=== PATIENT | female | born 1965 | race Caucasian/White ===

== ENCOUNTER 2021-04-08 09:07 | Emergency (ER) | payer OTHER, SELFPAY ==
--- NOTE | ~2021-04-08 | US_ITS ---
EXAMINATION: US VENOUS ULTRASOUND WITH DOPPLER LOWER EXTREMITY, RIGHT CLINICAL INFORMATION: Pain right calf. Assess for occult DVT. COMPARISON: None TECHNIQUE: Ultrasound of the deep veins is performed from the hip to the calf with compression sonography and color and pulse Doppler assessment. Spectral analysis with color-flow imaging is performed. FINDINGS: There is normal venous compression and respiratory variation and augmented flow. The visualized common femoral vein, superficial femoral vein, profunda femoral vein, popliteal vein, and the trifurcation region shows no evidence of deep venous thrombosis. No popliteal fossa cyst. US/US venous duplex LE RT IMPRESSION: No DVT demonstrated in the right lower extremity.
[2021-04-08 09:27] VITALS: BP 144/89; PULSE 60; RESP 18; TEMP 36.1; O2SAT 98; BMI 28.7
--- NOTE | 2021-04-08 09:49 | ED.LOWEXIN ---
HPI - Extremity Injury (Lower) General Chief Complaint: Extremity Injury, Lower Stated Complaint: R CALF PAIN Time Seen by Provider: 04/08/21 09:28 Source: patient Mode of arrival: ambulatory Limitations: no limitations History of Present Illness HPI Narrative: 55 y/o female presents to the ER with a painful bump to the lower part of her right leg. It is bruised, slightly swollen and tender but she cannot recall an injury to the area. She has applied heat, ISADORA wrap and taken aspirin. The area has gotten smaller but it still painful so she came to the ER for further evaluation. She denies history of DVT or PE in herself or family. MD complaint: leg injury Onset (ago): day(s) (2) Place: home Severity: mild Severity scale (1-10): 4 Relieving factors: NSAID and rest Exacerbating factors: weight bearing and palpation Associated symptoms: swelling and able to partially bear weight Other symptoms: none Treatments prior to arrival: heart therapy and bandage Related Data Allergies Allergy/AdvReac Type Severity Reaction Status Date / Time lidocaine Allergy Vomiting Verified 04/08/21 09:32 mepivacaine [From Carbocaine] Allergy Difficulty Verified 04/08/21 09:32 Breathing Penicillins Allergy Rash Verified 04/08/21 09:32 Review of Systems Review of Systems: Constitutional: No Fever, No Chills Cardiovascular: No Chest Pain, No SOB, No Edema Gastrointestinal: No Nausea, No Vomiting Musculoskeletal: No joint pain, + Myalgias Skin: No Skin Lesions, No rash Neuro: No Weakness, No Numbness Heme/Lymph: + Bruising, No Lymphadenopathy PMFSH Past Medical History Medical History (Updated 04/08/21 @ 11:34 by TREE Álvarez) High blood pressure High cholesterol Social History Social History Advance Directives: Yes Advance Directives Information Provided: Yes Advance Directives on File: No Patient : No Physical Exam Vital Signs: Vital Signs: Last Vital Signs Temp 97.0 F 04/08/21 09:27 Pulse 60 04/08/21 09:27 Resp 18 04/08/21 09:27 BP 144/89 H 04/08/21 09:27 Pulse Ox 98 04/08/21 09:27 Body Mass Index 28.7 Appearance: Alert. Oriented X3. No acute distress. HEENT: normal inspection CVS: Normal heart rate and rhythm. Pulses normal. Respiratory: No respiratory distress. CTAB Skin: Skin warm and dry. Normal skin color. Normal skin turgor. No rashes. Extremities: right medial lower leg with a small area of ecchymosis and tenderness, 2cm area of slight firmness with superficial vein visible. no calf tenderness. 2+ pedal pulses, NV intact. Neuro: Oriented X 3. No motor deficit. No sensory deficit. Course Course Course Narrative: 55 y/o female presenting with nontraumatic right lower leg pain and slight swelling and bruising. Most consistent with small hematoma or superficial thrombophlebitis but will get LE doppler to r/o DVT. Reevaluation(s) Reevaluation #1: LE doppler negative. Likely superficial thrombophlebitis vs small hematoma. Will treat with compression and warm compresses and have her follow up wt PCP. Stable for d/c home. Discharge Plan Discharge Clinical Impression: Superficial thrombophlebitis Qualifiers: Superficial thrombophlebitis-Involved body area: lower extremity Laterality: right Qualified Code(s): I80.01 - Phlebitis and thrombophlebitis of superficial vessels of right lower extremity Patient Disposition: Home, Self-Care Instructions: Superficial Thrombophlebitis (ED) Additional Instructions: Use warm compresses to the area several times per day Keep elevated when possible Use compression with ISADORA wrap as needed Take Motrin and/or Tylenol as needed for pain Follow up with your doctor
== END 2021-04-08 11:39 | disposition home or self-care (01) ==
PROVIDERS: Emergency Provider Emergency Medicine; PCP Family Medicine
DX: I80.01 Phlebitis and thrombophlebitis of superficial vessels of right lower extremity (principal); M79.661 Pain in right lower leg; I10 Essential (primary) hypertension; E78.5 Hyperlipidemia, unspecified
CPT/HCPCS: 93971; 99283; 99284

== ENCOUNTER 2022-02-01 01:04 | Emergency (ER) | payer OTHER, SELFPAY ==
--- NOTE | ~2022-02-01 | XR_ITS ---
EXAMINATION: XR SOFT TISSUE NECK CLINICAL INDICATION: Question of long pit in throat COMPARISON: None TECHNIQUE: 2 views of the soft tissue neck were obtained. FINDINGS: Soft tissue films of the neck demonstrate a normal larynx, pharynx and upper trachea. Normal appearance of the epiglottis. No soft tissue swelling or opaque foreign body is demonstrated. The lung apices are clear. XR/XR soft tissue neck IMPRESSION: No radiopaque foreign body identified.
[2022-02-01 01:10] VITALS: BP 166/89; PULSE 72; RESP 16; TEMP 36.7; O2SAT 98; BMI 28.2
--- NOTE | 2022-02-01 02:24 | PC.NURSE ---
pt is able to speak, swallow water and no resp distress noted. pt is visable to rn while waiting for a room.
--- NOTE | 2022-02-01 03:08 | ED_ITS ---
HPI - General Adult General Chief complaint: General Medical Stated complaint: ?Sanders seed in throat Time Seen by Provider: 02/01/22 02:59 Source: patient Limitations: no limitations History of Present Illness HPI narrative: this is a 56-year-old female with a history of getting things caught in her throat in the past such as pistachios, patient bones, who is swallowed a sanders pit this evening and felt like he got stuck in her throat. The patient tried drinking plenty of water. She has also vomited a few times and is not sure if the trait is still there. She still has some discomfort in her throat. She denies any shortness of breath or change in her voice, cough after vomiting but has not been coughing persistently. Related Data Allergies Allergy/AdvReac Type Severity Reaction Status Date / Time lidocaine Allergy Vomiting Verified 04/08/21 09:32 mepivacaine [From Carbocaine] Allergy Difficulty Verified 04/08/21 09:32 Breathing Penicillins Allergy Rash Verified 04/08/21 09:32 Review of Systems Review of Systems: As per HPI [facility] Past Medical History Medical History (Updated 02/01/22 @ 03:44 by Deejay Rios MD) High blood pressure High cholesterol Social History Social History Advance Directives: No Advance Directives Information Provided: Yes Physical Exam ED Vital Signs: Vital Signs - 24 hr 02/01/22 01:10 Temperature 98.0 F Pulse Rate 72 Respiratory Rate 16 Blood Pressure 166/89 H Pulse Oximetry 98 Oxygen Delivery Method Room Air BMI result Body Mass Index 28.2 Const General: no acute distress Orientation/consciousness: patient oriented x3 HENMT Head: Yes normal to inspection General nose exam: Normal external nose present Mouth: moist mucous membranes Throat: Yes posterior oropharynx normal, Yes tonsils normal and Yes uvula midline Eyes Eyelids: Yes eyelids normal Conjunctivae: conjunctivae normal Pupils: Equal, round and reactive pupils present Neck Neck: Yes supple Resp Effort & Inspection: normal respiratory effort Auscultation: clear to auscultation bilaterally Cardio Rate: regular rate Rhythm: regular rhythm Heart sounds: S1 normal heart sound present, S2 normal heart sound present, no gallops, no murmurs and no rubs GI Inspection: No distended Palpation (GI): Soft to palpation and nontender Auscultation: normal bowel sounds Skin General skin exam: other (Warm and dry) Neuro General: patient oriented x3 and CN's II-XI intact bilaterally Cranial nerves: Yes Equal, round and reactive pupils present Extrem General: Yes no pedal edema Psych Affect: normal affect Attitude: cooperative Medical Decision Making MDM Narrative Medical decision making narrative: patient with discomfort in her throat after she swallowed a sanders pit. Patient had drank water copiously and also vomited. Patient has a normal exam, no stridor no coughing. Soft tissue neck showed no radiopaque foreign body. Patient will be treated with Maalox and Benadryl liquid to gargle and swallow, has she has an allergy or intolerance to lidocaine. Patient likely had an abrasion from the Sanders pit but does not likely have any foreign body in her pharynx Imaging Data Soft tissue neck x-ray: Radiologist's impression: IMPRESSION: No radiopaque foreign body identified. Discharge Plan Discharge Clinical Impression: Abrasion of pharynx Patient Disposition: Home, Self-Care Additional Instructions: Use the Maalox mixed with the diphenhydramine as dispensed, gargle it and swallow. This should help soothe your throat. You likely have an abrasion of your throat from the sanders pit but there is no evidence of the tray fit being stuck there. If you have continued discomfort, follow-up with an Ear Nose and Throat doctor
[2022-02-01] MEDS: diphenhydrAMINE HCl 12.5 MG/5 ML LIQUID 25 MG PO (03:52)
[2022-02-01] MEDS: Magnesium Hydrox/Alum Hydrox 30 ML ORAL.SUSP 15 ML PO (03:52)
== END 2022-02-01 03:56 | disposition home or self-care (01) ==
PROVIDERS: Emergency Provider Emergency Medicine
DX: S10.11XA Abrasion of throat, initial encounter (principal); X58.XXXA Exposure to other specified factors, initial encounter; Y93.9 Activity, unspecified; Y92.9 Unspecified place or not applicable; Y99.9 Unspecified external cause status
CPT/HCPCS: 70360; 99282; 99283

== ENCOUNTER 2022-09-27 23:07 | Emergency (ER) | payer OTHER, SELFPAY ==
[2022-09-27 23:14] VITALS: BP 153/83; PULSE 62; RESP 16; TEMP 36.7; O2SAT 100; BMI 30.2
== END 2022-09-28 02:18 | disposition left against medical advice (07) ==
PROVIDERS: Emergency Provider Emergency Medicine
DX: K59.00 Constipation, unspecified (principal); R10.13 Epigastric pain; E78.5 Hyperlipidemia, unspecified; R03.0 Elevated blood-pressure reading, without diagnosis of hypertension
CPT/HCPCS: 99281